=== PATIENT | male | born 1990 | race Caucasian/White ===

== ENCOUNTER 2019-08-25 11:33 | Emergency (ER) | payer MEDICAID ==
[~2019-08-25] VITALS: Ht 177.8 cm; Wt 64.9 kg
[2019-08-25 11:39] VITALS: BP 125/87
[2019-08-25] MEDS ORDERED: ONDANSETRON ODT 4 MG PO ONE (12:30)
[2019-08-25] MEDS ORDERED: HYDROcodone/APAP 5/325 TABLET PO ONE (12:30)
[2019-08-25] MEDS ORDERED: HYDROcodone/APAP 5/325 TABLET ONE (12:32)
[2019-08-25] MEDS ORDERED: ONDANSETRON ODT 4 MG ONE (12:32)
--- NOTE | 2019-08-25 12:39 | NUR ---
PATIENT MEDICATED PER EM[facility].
--- NOTE | 2019-08-25 12:48 | NUR ---
Patient given discharge instructions and they have confirmed that they understand the instructions. Patient ambulatory with steady gait.
== END 2019-08-25 12:50 | disposition home or self-care (01) ==
LOC: ED 12:02
DX: S02.32XA Fracture of orbital floor, left side, initial encounter for closed fracture (principal); F17.200 Nicotine dependence, unspecified, uncomplicated; X58.XXXA Exposure to other specified factors, initial encounter; Y93.89 Activity, other specified; Y92.89 Other specified places as the place of occurrence of the external cause; Y99.8 Other external cause status
CPT/HCPCS: 99283; Q0162